=== PATIENT | female | born 1970 | race Two or more races ===

== ENCOUNTER 2025-09-30 10:39 | Outpatient (RCR) | payer MEDICAID, SELFPAY ==
--- NOTE | 2025-09-30 11:13 | PT.OIERPT ---
PT OP Initial Eval Patient Information Outpatient Physical Therapy Treatment Date: 09/30/25 Visit Reasons: left ankle pain Medical Diagnosis: M76.72 Treatment Dx #1: L ankle pain Start of Care: 09/30/25 Date of Onset: 2 yrs ago Smoking Status Smoking Status: Never smoker Initial Assessment Subjective: Pt is 55 yr old macedonian speaking female who c/o L foot pain and points to the outside or lateral aspect of the foot. She mentions that she has a bone spur on the heel. This pain limits ambulatory distance, prolonged standing, HH chores and carrying heavy things. 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 She was given pain injection in August with some pain relief. PMH: x3, L shoulder sx in 2018 Imaging: with provider Pt goal: to get rid of the pain in the L foot in order to work Objective: L ankle AROM; DF: 8 deg PF: 45 deg Inversion: 5 deg Eversion: 10 deg Heel raise: 75% of full height with low pain x3 reps Gait: symmetrical TTP: moderate of base of 5th MC, posterior to lateral malleolus, medial/lateral calcaneus Assessment: Pt presents with tenderness to palpation of the base of 5th metacarpal and of peroneal tendons at the lateral malleolus consistent with referring Dx of L peroneal tendinitis. Pt requires skilled therapy and has fair rehab potential to meet goals. Short Term and [employer] Goals 1. Ind with HEP 2. Decreased TTP of lateral foot and peroneal tendons and peroneal tendons from mod to min 3. Improved standing tolerance to 40 mins in order to do HH chores 4. Pt will ambulate x community distances with <=2/10 L foot pain Treatment Plan ? 1. Manual therapy ? 2. Therex ? 3. Modalities as indicated, moist heat, ice, estim Frequency and Duration: 1-2x a week for 10 Rx sessions plus the evaluation Certification Dates: 09/30/25 to 12/29/25 Procedure Charges OP PT Eval Mod Complex 30 minutes: Yes
== END 2025-10-06 23:59 | disposition home or self-care (01) ==
LOC: CPTX 10:39
PROVIDERS: PCP Podiatrist; Referring Provider Podiatrist; Visit Provider Podiatrist
DX: M25.572 Pain in left ankle and joints of left foot (principal)
CPT/HCPCS: 97162

== ENCOUNTER 2025-10-18 13:00 | Outpatient (RCR) | payer MEDICAID, SELFPAY ==
--- NOTE | 2025-10-07 11:05 | PT.ODAYNRPT ---
PT Outpatient Daily Note OP Daily Note Outpatient Physical Therapy Treatment Date: 10/07/25 Visit Reasons: LEFT ANKLE PAIN Subjective: Same as time of evaluation Objective: See f/S for therex MT: StM peroneal tendons x7' Assessment: Moderate tissue irritability of peroneal tendons with MT Plan: Continue per POC Length of Time (minutes) of Treatment: 30 Minutes Procedure Charges Therapeutic Exercise 30 minutes: Yes
--- NOTE | 2025-10-14 08:24 | PT.ODAYNRPT ---
PT Outpatient Daily Note OP Daily Note Outpatient Physical Therapy Treatment Date: 10/14/25 Visit Reasons: LEFT ANKLE PAIN Subjective: Same as time of evaluation Objective: See f/S for therex MT: StM peroneal tendons x7' MHP: x5' L ankle Assessment: Min/Moderate tissue irritability of peroneal tendons with MT Plan: Continue per POC Length of Time (minutes) of Treatment: 30 Minutes Procedure Charges Therapeutic Exercise 30 minutes: Yes
--- NOTE | 2025-10-16 10:45 | PT.ODAYNRPT ---
PT Outpatient Daily Note OP Daily Note Outpatient Physical Therapy Treatment Date: 10/16/25 Visit Reasons: LEFT ANKLE PAIN Subjective: Less L ankle pain since recent injection Objective: See f/S for therex Assessment: Min/Moderate tissue irritability of peroneal tendons with therex Plan: Pt is going OOT for a month and will call back to schedule Length of Time (minutes) of Treatment: 30 Minutes Procedure Charges Therapeutic Exercise 30 minutes: Yes
--- NOTE | 2025-10-18 14:31 | PT.ODAYNRPT ---
PT Outpatient Daily Note OP Daily Note Outpatient Physical Therapy Treatment Date: 10/18/25 Visit Reasons: LEFT ANKLE PAIN Subjective: Pt c/o pain on the outside and top of the foot. Objective: Please see flow sheet for ther ex list. Assessment: Added interventions completed with minimal pain. Plan: Continue with poC. Length of Time (minutes) of Treatment: 30 Minutes Procedure Charges Therapeutic Exercise 30 minutes: Yes
== END 2025-11-06 23:59 | disposition home or self-care (01) ==
LOC: CPTX 13:00
PROVIDERS: PCP Podiatrist; Referring Provider Podiatrist; Visit Provider Podiatrist
DX: M25.572 Pain in left ankle and joints of left foot (principal); M76.72 Peroneal tendinitis, left leg
CPT/HCPCS: 97110